=== PATIENT | male | born 1945 | race Caucasian/White ===

== ENCOUNTER 2021-06-29 05:47 | Inpatient (IN) ==
[2021-06-29] MEDS ORDERED: POTASSIUM CHLORIDE RIDER 10 MEQ/100 ML PREMIX IV PRN (05:59)
[2021-06-29] MEDS ORDERED: DIAZEPAM 5 MG TABLET PO ONE (05:59)
[2021-06-29] MEDS ORDERED: MAGNESIUM SULF RIDER 2 GM/50 ML PREMIX IV PRN (05:59)
[2021-06-29] MEDS ORDERED: diphenhydrAMINE CAP 50 MG CAPSULE PO ONE (05:59)
[2021-06-29] MEDS ORDERED: ASPIRIN 325 MG TABLET PO ONE (05:59)
[2021-06-29] MEDS ORDERED: diphenhydrAMINE CAP 50 MG CAPSULE ONE (06:35)
[2021-06-29] MEDS ORDERED: ASPIRIN 325 MG TABLET ONE (06:35)
[2021-06-29] MEDS ORDERED: DIAZEPAM 5 MG TABLET ONE (06:35)
[2021-06-29] MEDS: SODIUM CHLORIDE 0.9% 1,000 ML IV SCH ×2 (06:37→18:38)
[2021-06-29] MEDS ORDERED: HEPARIN/NACL 0.9% 2 UNITS/ML 2,000 UNIT/1,000 ML BAG IV ONE (07:51)
[2021-06-29] MEDS ORDERED: MIDAZOLAM 2 MG/2 ML VIAL ONE ×7 (08:28→12:39)
[2021-06-29] MEDS ORDERED: fentaNYL 100 MCG/2 ML VIAL ONE ×4 (08:28→12:30)
[2021-06-29] MEDS ORDERED: BIVALIRUDIN 250 MG VIAL IV ONE ×2 (08:57→11:29)
[2021-06-29] MEDS ORDERED: hydrALAZINE 20 MG/1 ML VIAL ONE (09:26)
[2021-06-29] MEDS ORDERED: HEPARIN/NACL 0.9% 2 UNITS/ML 1,000 UNIT/500 ML BAG IV ONE (10:16)
[2021-06-29] MEDS ORDERED: NITROGLYCERIN DRIP 50 MG/250 ML BOTTLE IV ONE (10:46)
[2021-06-29] MEDS ORDERED: TICAGRELOR 90 MG TABLET ONE (10:50)
[2021-06-29] MEDS ORDERED: MORPHINE 10 MG/1 ML VIAL ONE (10:58)
[2021-06-29] MEDS ORDERED: ONDANSETRON 4 MG/2 ML VIAL ONE (11:06)
[2021-06-29] MEDS ORDERED: PHENYLEPHRINE 50 MG/5 ML VIAL ONE (11:08)
[2021-06-29] MEDS ORDERED: DOPamine 800 MG/250 ML PREMIX IV ONE (11:10)
[2021-06-29] MEDS ORDERED: ceFAZolin 1,000 MG VIAL ONE (11:26)
[2021-06-29] MEDS ORDERED: HEPARIN/NACL 0.9% 2 UNITS/ML 3,000 UNIT/1,500 ML BAG IV ONE (11:31)
[2021-06-29 11:39] LABS: RBC,Urine 6 /HPF (0-4)
[2021-06-29 11:40] LABS: Bilirubin,Urine Negative (Negative); Blood, Urine Trace mg/dL (Negative); Glucose,Urine (UA) 100 mg/dL (Negative); Ketones,Urine 15 mg/dL (Negative); Nitrite,Urine Negative (Negative); Protein,Urine Negative (Negative); Urine Appearance Clear (Clear); Urine Color Yellow (Yellow); Urine Specific Gravity 1.015 (1.001-1.035); Urine Urobilinogen 0.2 eU/dL (<2.0); Urine pH 7.5 (4.5-8.0)
[2021-06-29] MEDS ORDERED: HEPARIN 5,000 UNIT/1 ML VIAL ONE (11:58)
[2021-06-29] MEDS ORDERED: HEPARIN DRIP 0 UNITS/0 ML PREMIX IV ONE (11:59)
[2021-06-29] MEDS ORDERED: EPTIFIBATIDE 75 MG/100 ML BOTTLE IV ONE (12:04)
[2021-06-29] MEDS ORDERED: ACETAMINOPHEN 325 MG TABLET PO PRN (13:11)
[2021-06-29] MEDS ORDERED: ACETAMINOPHEN/CODEINE 300-30 MG TABLET PO PRN (13:11)
[2021-06-29] MEDS ORDERED: MORPHINE 2 MG/1 ML SYRINGE IV PRN (13:11)
[2021-06-29] MEDS ORDERED: NITROGLYCERIN SL 0.4 MG TABLET SL PRN (13:11)
[2021-06-29] MEDS ORDERED: GLUCAGON 1 MG VIAL IM PRN (13:13)
[2021-06-29] MEDS ORDERED: DEXTROSE 50% 25 GM/50 ML VIAL IV PRN (13:13)
[2021-06-29] MEDS ORDERED: EPTIFIBATIDE 75 MG/100 ML BOTTLE IV SCH (13:30)
[2021-06-29 14:44] LABS: Basophils % 0.2 % (0.0-0.8); Hemoglobin 13.7 GM/DL (14.0-18.0); Immature Granulocytes % 0.6 %; Immature Granulocytes Absolute 0.12 #; Lymphocytes # 0.4 10*3/uL (1.4-4.0); Lymphocytes % 1.8 % (21.2-54.2); Mean Corpuscular HGB Conc 33.4 GM/DL (32-36); Mean Platelet Volume 11.3 FL (9.6-12.0); Monocytes # 0.6 10*3/uL (0.11-0.8); Monocytes % 3.3 % (1.7-12.7); Neutrophils % 94.1 % (38.7-73.9); Platelet Count 232 T/CUMM (130-400); Red Blood Count 4.36 MC/CUMM (3.8-5.5); White Blood Count 19.6 T/CUMM (4-12)
[2021-06-29] MEDS: TAMSULOSIN 0.4 MG CAPSULE PO SCH (15:00)
[2021-06-29 15:06] LABS: CKMB % 8.75 %
[2021-06-29 15:08] LABS: High Sensitive Troponin I* 3859.9 ng/L (0-78)
[2021-06-29 15:10] LABS: Band Neutrophils 4 % (0-10); Lymphocytes 3 % (20-55); Platelet Estimate Normal; Polychromasia Slight; Target Cells Slight; Total Cells Counted 100
[2021-06-29] MEDS: INSULIN REGULAR 100 UNIT/ML SUBCUT SCH ×2 (16:30→21:31)
[2021-06-29 16:46] LABS: CKMB % 9.26 %
[2021-06-29 16:48] LABS: High Sensitive Troponin I* 9997.5 ng/L (0-78)
[2021-06-29 19:25] LABS: CKMB % 9.01 %
[2021-06-29 19:26] LABS: High Sensitive Troponin I* 23433.1 ng/L (0-78)
[2021-06-29] MEDS: TICAGRELOR 90 MG TABLET PO SCH (21:20)
[2021-06-29 23:06] LABS: CKMB % 8.49 %; High Sensitive Troponin I* 25573.6 ng/L (0-78)
[2021-06-30] MEDS: ONDANSETRON 4 MG/2 ML VIAL IV PRN ×2 (01:23→10:51)
[2021-06-30 02:37] LABS: Basophils % 0.1 % (0.0-0.8); Hematocrit 38.7 VOL% (42.0-52.0); Immature Granulocytes % 0.5 %; Immature Granulocytes Absolute 0.06 #; Lymphocytes # 0.5 10*3/uL (1.4-4.0); Lymphocytes % 4.3 % (21.2-54.2); Mean Corpuscular HGB Conc 33.6 GM/DL (32-36); Mean Corpuscular Volume 93.7 FL (87-102); Mean Platelet Volume 11.6 FL (9.6-12.0); Monocytes # 0.9 10*3/uL (0.11-0.8); Monocytes % 7.3 % (1.7-12.7); Neutrophils % 87.8 % (38.7-73.9); Platelet Count 210 T/CUMM (130-400); Red Blood Count 4.13 MC/CUMM (3.8-5.5); Red Cell Distribution Width 13.2 % (9.3-17.3); White Blood Count 12.3 T/CUMM (4-12)
[2021-06-30 02:44] LABS: Calcium 8.4 MG/DL (8.5-10.1); Osmolality,Calculated 283.8 MOS/KG (273-304); Potassium 4.1 MMOL/L (3.5-5.1); Risk Ratio 2.44; VLDL Cholesterol 10.4 MG/DL
[2021-06-30 02:50] LABS: CKMB % 7.85 %
[2021-06-30 02:51] LABS: High Sensitive Troponin I* 24211.9 ng/L (0-78)
[2021-06-30] MEDS: SODIUM CHLORIDE 0.9% 1,000 ML IV SCH (03:05)
[2021-06-30 03:06] LABS: Lymphocytes 5 % (20-55); Platelet Estimate Adequate; Total Cells Counted 100
[2021-06-30] MEDS ORDERED: hydrALAZINE 20 MG/1 ML VIAL IV PRN (05:17)
[2021-06-30] MEDS: INSULIN REGULAR 100 UNIT/ML SUBCUT SCH ×4 (09:58→20:56)
[2021-06-30] MEDS: ASCORBIC ACID 500 MG TABLET PO SCH (10:04)
[2021-06-30] MEDS: FOLIC ACID 1 MG TABLET PO SCH (10:04)
[2021-06-30] MEDS: TAMSULOSIN 0.4 MG CAPSULE PO SCH (10:05)
[2021-06-30] MEDS: carvediloL 3.125 MG TABLET PO SCH ×2 (10:05→20:56)
[2021-06-30] MEDS: CHOLECALCIFEROL 1,000 UNIT TABLET PO SCH (10:05)
[2021-06-30] MEDS: NON-FORMULARY MEDICATION (Zinc Gluconate 30 mg Tablet) PO SCH ×2 (10:05→10:14)
[2021-06-30] MEDS: ASPIRIN EC 81 MG TABLET PO SCH (10:05)
[2021-06-30] MEDS: NON-FORMULARY MEDICATION (Lysine 500 mg Tablet) PO SCH ×2 (10:05→10:13)
[2021-06-30] MEDS: TICAGRELOR 90 MG TABLET PO SCH ×2 (10:05→20:56)
[2021-06-30] MEDS: lisinopriL 2.5 MG TABLET PO SCH (10:05)
[2021-06-30] MEDS: PANTOPRAZOLE 40 MG TABLET PO SCH (10:05)
[2021-06-30] MEDS ORDERED: ROSUVASTATIN 20 MG TABLET PO SCH (21:00)
[2021-07-01 05:22] LABS: Basophils % 0.2 % (0.0-0.8); Eosinophils % 0.2 % (0.00-10.9); Hemoglobin 13.1 GM/DL (14.0-18.0); Immature Granulocytes % 0.5 %; Immature Granulocytes Absolute 0.07 #; Lymphocytes # 0.8 10*3/uL (1.4-4.0); Lymphocytes % 5.9 % (21.2-54.2); Mean Corpuscular HGB Conc 34.5 GM/DL (32-36); Mean Corpuscular Volume 91.6 FL (87-102); Monocytes # 1.2 10*3/uL (0.11-0.8); Monocytes % 9.2 % (1.7-12.7); Platelet Count 194 T/CUMM (130-400); Red Blood Count 4.15 MC/CUMM (3.8-5.5); Red Cell Distribution Width 13.1 % (9.3-17.3); White Blood Count 13.1 T/CUMM (4-12)
[2021-07-01 05:42] LABS: Calcium 8.5 MG/DL (8.5-10.1); Potassium 3.7 MMOL/L (3.5-5.1)
[2021-07-01] MEDS: INSULIN REGULAR 100 UNIT/ML SUBCUT SCH (07:47)
[2021-07-01] MEDS: PANTOPRAZOLE 40 MG TABLET PO SCH (08:47)
[2021-07-01] MEDS: TICAGRELOR 90 MG TABLET PO SCH (08:47)
[2021-07-01] MEDS: FOLIC ACID 1 MG TABLET PO SCH (08:47)
[2021-07-01] MEDS: CHOLECALCIFEROL 1,000 UNIT TABLET PO SCH (08:47)
[2021-07-01] MEDS: ASCORBIC ACID 500 MG TABLET PO SCH (08:47)
[2021-07-01] MEDS: TAMSULOSIN 0.4 MG CAPSULE PO SCH (08:47)
[2021-07-01] MEDS: carvediloL 3.125 MG TABLET PO SCH (08:47)
[2021-07-01] MEDS: ASPIRIN EC 81 MG TABLET PO SCH (08:47)
[2021-07-01] MEDS: lisinopriL 2.5 MG TABLET PO SCH (08:47)
[2021-07-01] MEDS: NON-FORMULARY MEDICATION (Zinc Gluconate 30 mg Tablet) PO SCH (08:48)
[2021-07-01] MEDS: NON-FORMULARY MEDICATION (Lysine 500 mg Tablet) PO SCH (08:48)
[2021-07-01 09:50] VITALS: BP 126/61
== END 2021-07-01 11:05 | disposition home or self-care (01) | DRG 246 ==
LOC: EDSDCBED → N.CC 05:47 → N.CL 05:47 → N.CC 13:50
PROVIDERS: ADMIT Internal Medicine Cardiovascular Disease; ATTEND Internal Medicine Cardiovascular Disease
PROC: CLCCHCL (ICD-10-PCS; 2021-06-29 10:15)